=== PATIENT | male | born 1975 | race Caucasian/White ===

== ENCOUNTER 2019-02-09 17:25 | Emergency (ER) | payer SELFPAY ==
[~2019-02-09 17:25] MED LIST: HYDR-3083 PO; METH4TAB57 PO
[2019-02-09] MEDS ORDERED: ENT KIT ONE (17:30)
[2019-02-09] MEDS ORDERED: TRANEXAMIC AC 1000 MG/10ML SDV ONE (17:32)
--- NOTE | 2019-02-09 17:38 | ER Report ---
History and Physical Time Seen By MD: 17:36 Hx. of Stated Complaint: nose bleed on and off since he blew his nose at 0900 today HPI/ROS CHIEF COMPLAINT: Nosebleed HISTORY OF PRESENT ILLNESS: 43-year-old male patient presents to emergency room with complaint of nosebleed. Patient states this been going on since 9:00 this morning. He states that at that time he blew his nose. He states that he has been able to stop couple times, however bleeding would start up again. Patient denies any fevers, chills, nausea, vomiting or diarrhea. Patient states he does have a history of hypertension, he did take lisinopril 2 weeks and then the medication ran out. He states he is not followed up at the [facility] to get a renewal. Patient denies any nausea, vomiting or diarrhea. He states he has had significant amount of blood going down the back of his throat. REVIEW OF SYSTEMS: Respiratory: No cough, no dyspnea. Cardiovascular: No chest pain, no palpitations. Gastrointestinal: No vomiting, no abdominal pain. Musculoskeletal: No back pain. Allergies: Coded Allergies: No Known Drug Allergies (Verified , 07/23/09) Home Meds Active Scripts Lisinopril (LISINOPRIL) 20 Mg Tablet, 20 MG PO QDAY, #30 TAB Prov:JULIAHERNESTO FNP 02/09/19 Discontinued Reported Medications Methylprednisolone (Medrol) 4 Mg/Dose-Pack Tab.ds.pk, 4 MG PO DAILY, 0 Refills 07/23/09 Hydrocodone Bit/Acetaminophen (Hydrocodone/Apap 7.5/500 Tb) 1 Each Tablet, 1 EACH PO Q4-6H, #25 0 Refills 07/23/09 Past Medical/Surgical History Patient has a past medical history of hypertension. Patient denies any surgical history. Reviewed Nurses Notes: Yes Constitutional Vital Sign - Last 24 Hours 02/09/19 02/09/19 02/09/19 02/09/19 17:28 18:00 18:08 18:15 Temp 97.9 Pulse 100 Resp 20 B/P (MAP) 125/99 (108) 114/78 (90) 132/86 (101) Pulse Ox 96 O2 Delivery Room Air 02/09/19 18:30 Pulse 76 Pulse Ox 95 Physical Exam General Appearance: The patient is alert, has no immediate need for airway protection and no current signs of toxicity. ENT: Bleeding from right nostril. Respiratory: Chest is non tender, lungs are clear to auscultation. Cardiac: regular rate and rhythm Gastrointestinal: Abdomen is soft and non tender, no masses, bowel sounds normal. Musculoskeletal: Neck: Neck is supple and non tender. Extremities have full range of motion and are non tender. Skin: No rashes or lesions. DIFFERENTIAL DIAGNOSIS: After history and physical exam differential diagnosis was considered for epistaxis, hypertension. Medical Decision Making Data Points Result Diagram: 02/09/19 1756 02/09/19 1756 Laboratory Hematology Test 02/09/19 17:56 Red Blood Count 5.21 M/uL (4.00-5.60) Mean Corpuscular Volume 87.5 fL (80.0-96.0) Mean Corpuscular Hemoglobin 30.6 pg (26.0-33.0) Mean Corpuscular Hemoglobin Concent 35.0 g/dL (32.0-36.0) Red Cell Distribution Width 12.3 % (11.5-14.5) Mean Platelet Volume 10.2 fL (7.2-11.1) Neutrophils (%) (Auto) 52.2 % (39.4-72.5) Lymphocytes (%) (Auto) 37.5 % (17.6-49.6) Monocytes (%) (Auto) 6.8 % (4.1-12.4) Eosinophils (%) (Auto) 2.6 % (0.4-6.7) Basophils (%) (Auto) 0.9 % (0.3-1.4) Nucleated RBC Relative Count (auto) 0.1 /100WBC Neutrophils # (Auto) 3.5 K/uL (2.0-7.4) Lymphocytes # (Auto) 2.5 K/uL (1.3-3.6) Monocytes # (Auto) 0.4 K/uL (0.3-1.0) Eosinophils # (Auto) 0.2 K/uL (0.0-0.5) Basophils # (Auto) 0.1 K/uL (0.0-0.1) Nucleated RBC Absolute Count (auto) 0.01 K/uL Prothrombin Time 13.0 seconds (12.0-14.4) Prothromb Time International Ratio 0.98 Activated Partial Thromboplast Time 32 seconds (23-35) Sodium Level 141 mmol/L (137-145) Potassium Level 3.6 mmol/L (3.5-5.0) Chloride Level 104 mmol/L (98-107) Carbon Dioxide Level 22 mmol/L (22-30) Blood Urea Nitrogen 15 mg/dl (9-21) Creatinine 1.00 mg/dl (0.66-1.25) Glomerular Filtration Rate Calc > 60.0 Random Glucose 109 mg/dl (75-110) Calcium Level 9.4 mg/dl (8.4-10.2) Total Bilirubin 0.7 mg/dl (0.2-1.3) Aspartate Amino Transf (AST/SGOT) 37 U/L (0-35) Alanine Aminotransferase (ALT/SGPT) 50 U/L (0-56) Alkaline Phosphatase 97 U/L (0-126) Total Protein 7.8 g/dl (6.3-8.2) Albumin 4.5 g/dl (3.5-5.0) Chemistry Test 02/09/19 17:56 White Blood Count 6.6 k/uL (4.5-11.0) Red Blood Count 5.21 M/uL (4.00-5.60) Hemoglobin 15.9 g/dL (14.0-18.0) Hematocrit 45.6 % (42.0-52.0) Mean Corpuscular Volume 87.5 fL (80.0-96.0) Mean Corpuscular Hemoglobin 30.6 pg (26.0-33.0) Mean Corpuscular Hemoglobin Concent 35.0 g/dL (32.0-36.0) Red Cell Distribution Width 12.3 % (11.5-14.5) Platelet Count 204 K/uL (150-450) Mean Platelet Volume 10.2 fL (7.2-11.1) Neutrophils (%) (Auto) 52.2 % (39.4-72.5) Lymphocytes (%) (Auto) 37.5 % (17.6-49.6) Monocytes (%) (Auto) 6.8 % (4.1-12.4) Eosinophils (%) (Auto) 2.6 % (0.4-6.7) Basophils (%) (Auto) 0.9 % (0.3-1.4) Nucleated RBC Relative Count (auto) 0.1 /100WBC Neutrophils # (Auto) 3.5 K/uL (2.0-7.4) Lymphocytes # (Auto) 2.5 K/uL (1.3-3.6) Monocytes # (Auto) 0.4 K/uL (0.3-1.0) Eosinophils # (Auto) 0.2 K/uL (0.0-0.5) Basophils # (Auto) 0.1 K/uL (0.0-0.1) Nucleated RBC Absolute Count (auto) 0.01 K/uL Prothrombin Time 13.0 seconds (12.0-14.4) Prothromb Time International Ratio 0.98 Activated Partial Thromboplast Time 32 seconds (23-35) Glomerular Filtration Rate Calc > 60.0 Calcium Level 9.4 mg/dl (8.4-10.2) Total Bilirubin 0.7 mg/dl (0.2-1.3) Aspartate Amino Transf (AST/SGOT) 37 U/L (0-35) Alanine Aminotransferase (ALT/SGPT) 50 U/L (0-56) Alkaline Phosphatase 97 U/L (0-126) Total Protein 7.8 g/dl (6.3-8.2) Albumin 4.5 g/dl (3.5-5.0) Coagulation Test 02/09/19 17:56 Prothrombin Time 13.0 seconds Prothromb Time International Ratio 0.98 Activated Partial Thromboplast Time 32 seconds ED Course/Re-evaluation ED Course Patient was admitted on exam room, history and physical were obtained. Differential diagnoses were considered. On examination lungs are clear, heart is regular, abdomen is soft nontender. Patient is bleeding from the right nostril. I did wet a large cotton-tipped applicator with TXA and placed into the nostril. I did note the patient's blood pressure was 140/108. We did go ahead and give 10 mg of labetalol. A CBC, CMP, PT, PTT were done. Lab results were unremarkable. On reevaluation I was able to remove the packing from the right nostril. Bleeding had stopped that appointment time. We continued to monitor him to have the lab results back. At which time he did not have any bleeding. We did give him some cold water to rinse out his mouth. I did not elicit any bleeding. We will go ahead and discharge patient home at this time. Patient was given a dose of lisinopril 20 mg by mouth here in the emergency room and was given a prescription for 30 tablets. [facility] 1[facility]2 [facility]. Patient verbalized understanding and agreement with plan. Decision to Disposition Date: Feb 09, 2019 Decision to Disposition Time: 18:59 Depart Departure Latest Vital Signs Vital Signs Date Time Temp Pulse Resp B/P (MAP) Pulse Ox O2 Delivery O2 Flow Rate FiO2 02/09/19 18:30 76 95 02/09/19 18:15 132/86 (101) 02/09/19 17:28 97.9 20 Room Air Impression: Primary Impression: Epistaxis Additional Impression: Hypertension Condition: Improved Disposition: HOME OR SELF-CARE New Scripts Lisinopril (LISINOPRIL) 20 Mg Tablet 20 MG PO QDAY, #30 TAB Prov: HERNESTO DUMONT 02/09/19 Patient Instructions: Nosebleed (ED) Additional Instructions: Increase fluid intake. Get plenty of rest. Take the blood pressure medication as prescribed. Follow up with the [facility] in the next 1-2 weeks. Return to the ER if condition worsens. Problem Qualifiers Additional Impression: Hypertension Hypertension type: essential hypertension Qualified Codes: I10 - Essential (primary) hypertension HERNESTO DUMONT Feb 09, 2019 17:38
[2019-02-09] MEDS ORDERED: LABETALOL HCL 25 MG/5 ML SYRINGE IVP ONE (17:45)
[2019-02-09] MEDS ORDERED: LABETALOL HCL 100 MG/20ML VIAL IVP ONE (17:50)
[2019-02-09 18:09] LABS: PLATELET COUNT, AUTOMATED 204 K/uL (150-450)
[2019-02-09 18:15] VITALS: BP 132/86
[2019-02-09 18:20] LABS: INR 0.98
[2019-02-09] MEDS ORDERED: LISINOPRIL 20 MG TAB PO ONE (19:00)
[2019-02-09] MEDS ORDERED: LISI20TA29 PO (19:02)
== END 2019-02-09 19:08 | disposition home or self-care (01) ==
LOC: ER 17:38
DX: R04.0 Epistaxis (principal); I10 Essential (primary) hypertension
CPT/HCPCS: 82040; 82247; 82310; 82374; 82435; 82565; 82947; 84075; 84132; 84155; 84295; 84450; 84460; 84520; 85025; 85610; 85730; 99283